=== PATIENT | male | born 1945 | race Caucasian/White ===

== ENCOUNTER 2018-05-05 11:43 | Observation (INO) ==
[2018-05-05] MEDS ORDERED: Isovue-370 500 ML INFUS..BTL IV ONE (11:52)
[2018-05-05] MEDS ORDERED: *HR* Dextrose 50 % in Water (Syg) 50 ML SYRINGE IVP ONE ×2 (12:01→13:55)
--- NOTE | 2018-05-05 12:01 | Emergency Department Note ---
Disposition Clinical Impression: Hypoglycemia Disposition: Admitted As Inpatient Condition: Fair [facility]: [facility] Care Provider[facility] - Forms: ED Satisfaction Letter Time of Disposition: 15:17 General Adult HPI - General Chief complaint: ED Weakness Stated complaint: HYPOGLYCEMIA, NUMBNESS Time Seen by Provider: 05/05/18 11:51 Source: patient, EMS Mode of arrival: EMS Limitations: no limitations Nursing Notes Reviewed: Yes Vital Signs Reviewed: Yes - History of Present Illness HPI Narrative: 73-year-old male with significant past medical history of TIA and diabetes currently on glipizide presenting to the emergency prior chief complaint of weakness, numbness and hypoglycemia. According to his have bedside patient was sleeping this morning when he started thrashing around in bed. When he woke up he was unable to speak. decided to call EMS at that time. When EMS arrived patient was starting to resolve his symptoms. Vitamin arrived to the emergency department all that was noticed with some mild left facial droop that resolved when he smiled. Just prior to arrival patient did have a point of care glucose that was 26. According to at bedside patient' s sugars have been low over the past few months in the 40s to 50s but no intervention has been done by his primary care physician. Pain Scale: 0 - Related Data Home Medications Medication Instructions Recorded Confirmed Aspirin [Lo-Dose Aspirin EC] 81 mg PO DAILY 05/05/18 05/05/18 Cholecalciferol (D-3) [Vitamin D] 1,000 unit PO DAILY 05/05/18 05/05/18 Donepezil [Aricept] 5 mg PO QAM 05/05/18 05/05/18 Glucosamine HCl/Chondr [place] A Na 1 tab PO DAILY 05/05/18 05/05/18 [[facility] Glucosamine-Chondr Tablet] Lovastatin [Lovastatin] 40 mg PO HS 05/05/18 05/05/18 Propranolol [Inderal] 10 mg PO BID 05/05/18 05/05/18 Thiamine HCl [Vitamin B-1] 100 mg PO DAILY 05/05/18 05/05/18 Tolterodine LA (24 HR) [Detrol LA] 4 mg PO DAILY 05/05/18 05/05/18 glipiZIDE [Glucotrol] 2.5 mg PO BID 05/05/18 05/05/18 Allergies Allergy/AdvReac Type Severity Reaction Status Date / Time bee venom protein (honey bee) Allergy Anaphylaxis Verified 05/05/18 13:43 gabapentin AdvReac Shakiness Verified 05/05/18 13:43 pregabalin AdvReac Shakiness Verified 05/05/18 13:43 All systems ED: reviewed and negative except as stated. Constitutional: Denies: fever, chills Eyes: Reports: as per HPI ENT ED: Reports: as per HPI Cardiovascular: Denies: chest pain, palpitations Respiratory: Denies: cough, dyspnea, wheezes Gastrointestinal: Denies: abdominal pain, nausea, vomiting Genitourinary: Reports: as per HPI Musculoskeletal: Reports: as per HPI Integumentary: Denies: rash, lesions Neurological: Reports: headache, weakness, numbness, paresthesias Psychiatric: Reports: as per HPI Endocrine: Reports: as per HPI Hematological/Lymphatic: Reports: as per HPI Allergic/Immunologic: Reports: as per HPI Past Medical History - Past Medical History Attestation: Yes The following information was validated with the patient. Medical history: Reports: arthritis, cancer, coronary artery disease, diabetes, hyperlipidemia, hypertension Surgical history: Reports: knee replacement Psychiatric history: Reports: no psych history - Social History Smoking Status: Former smoker Smokeless Tobacco Status: No Alcohol use: Reports: occasionally Drug use: Reports: none Physical Exam - General Limitations: no limitations General appearance: alert, in no apparent distress - Head Head exam: atraumatic, normocephalic, normal inspection - Eye Eye exam: Present: normal appearance, PERRL, EOMI. Absent: scleral icterus, conjunctival injection - ENT ENT exam: mucous membranes dry - Neck Neck exam: Present: normal inspection, full ROM. Absent: tenderness, meningismus - Chest Chest inspection: Present: normal inspection, symmetric chest wall rise. Absent : tenderness, rash - Respiratory Respiratory exam: Present: normal lung sounds bilaterally. Absent: respiratory distress, wheezes - Cardiovascular Cardiovascular exam: Present: regular rate, normal rhythm, normal heart sounds - Abdominal Exam Abdominal exam: Present: soft, Non-Tender. Absent: distention, guarding, rebound - Extremities Exam Extremities exam: Present: normal inspection, full ROM - Neurological Exam Neurological exam: Present: alert, oriented X3, CN II-XII intact, other (mild left facial droop noted on exam, patient able to smile equal bilaterally without difficulty). Absent: motor sensory deficit - Psychiatric Psychiatric exam: Present: normal affect, normal mood - Skin Skin exam: Present: warm, intact Course Course Narrative: 73-year-old male presenting with hypoglycemia and strokelike symptoms. Due to the hypoglycemia stroke alert but not because at this time. We will also perform a CT of the head along with a CTA of the head and neck. We will provide the patient with D50 and perform basic laboratory analysis including CBC, BMP, troponin. Patient is alert and oriented 3 in the room. Physical exam does not show any focal neurological deficit. Disposition will be admission the pending results. Patient agrees to this plan. - Reevaluation(s) Reevaluation #1: Patient's laboratory analysis shows apical ischemia but otherwise unchanged from baseline. CTA of the head and neck were within normal limits. Patient at baseline according to . Repeat glucose showed lowering again in the 30s. Another amp of D50 was given and D5 normal saline is given at 100 mL per hour for maintenance fluids. Patient also given a diet. At this time will plan to admit the patient for further workup for his hypoglycemia. Patient is alert and oriented 3 with stable vital signs. I spoke with hospitalist senior analytic consultant Dr. Rodas who agrees to accept the patient at this time. Vital Signs Temperature 98.6 F 05/05/18 11:46 Pulse Rate 66 05/05/18 11:46 Respiratory Rate 18 05/05/18 11:46 Blood Pressure 152/88 05/05/18 11:46 O2 Sat by Pulse Oximetry 97 05/05/18 11:46 Temperature 98.6 F 05/05/18 11:46 Pulse Rate 70 05/05/18 14:16 Respiratory Rate 18 05/05/18 14:16 Blood Pressure 171/82 05/05/18 14:16 O2 Sat by Pulse Oximetry 97 05/05/18 14:16 Oxygen Delivery Oxygen Delivery Room Air Medical Decision Making - Lab Data Result diagrams: 05/05/18 11:50 05/05/18 11:50 Lab Results 05/05/18 05/05/18 05/05/18 Range/Units 11:46 11:48 11:50 WBC 5.9 (4.3-11.1) K/mcL RBC 3.78 L (4.19-5.50) M/mcL Hgb 14.7 (12.9-16.9) g/dL Hct 41.5 (37.5-50.1) % MCV 109.8 H (83.0-100.0) fL MCH 38.9 H (28.0-33.3) pg MCHC 35.4 (31.6-35.5) g/dL RDW 13.9 (11.5-14.5) % Plt Count 92 L (140-400) K/mcL MPV 9.8 (9.4-12.4) fL Immature Gran % 0.2 (0-4) % Seg Neutrophils % 44.7 % Lymphocytes % 48.0 % Monocytes % 4.9 % Eosinophils % 2.2 % Basophils % 0.0 % Neutrophils # 2.6 (1.6-8.9) K/mcL Lymphocytes # 2.8 (0.6-4.6) K/mcL Monocytes # 0.3 (0.0-1.3) K/mcL Eosinophils # 0.1 (0.0-0.6) K/mcL Basophils # 0.0 (0.0-0.2) K/mcL Immature Plt Fraction 4.1 (1.1-6.1) % PT (9.4-12.1) Seconds INR APTT (26.0-36.0) Seconds Sodium (136-145) mEq/L Potassium (3.5-5.1) mEq/L Chloride (98-107) mEq/L Carbon Dioxide (23-29) mEq/L BUN (8-23) mg/dL Creatinine (0.70-1.30) mg/dL Est GFR ( Amer) (> 60) Est GFR (Non-Af Amer) (> 60) BUN/Creatinine Ratio (6-26) Glucose (70-105) mg/dL POC Glucose 26 L* 31 L* (70-99) mg/dL Calculated Osmolality (280-300) Lactic Acid (0.5-2.2) mmol/L Calcium (8.6-10.3) mg/dL Troponin I (< 0.04) ng/mL Urine Color (Yellow) Urine Clarity (Clear) Urine pH (5.0-8.0) pH Units Ur Specific [place] (1.010-1.025) Urine Protein (Neg-Trace) mg/dL Urine Glucose (UA) (Normal) mg/dL Urine Ketones (Negative) mg/dL Urine Blood (Negative) Urine Nitrite (Negative) Urine Bilirubin (Negative) Urine Urobilinogen (Normal) mg/dL Ur Leukocyte Esterase (Negative) Ur Culture Indicated? (NO) Specimen Rejected 05/05/18 05/05/18 05/05/18 Range/Units 11:50 11:50 11:58 WBC (4.3-11.1) K/mcL RBC (4.19-5.50) M/mcL Hgb (12.9-16.9) g/dL Hct (37.5-50.1) % MCV (83.0-100.0) fL MCH (28.0-33.3) pg MCHC (31.6-35.5) g/dL RDW (11.5-14.5) % Plt Count (140-400) K/mcL MPV (9.4-12.4) fL Immature Gran % (0-4) % Seg Neutrophils % % Lymphocytes % % Monocytes % % Eosinophils % % Basophils % % Neutrophils # (1.6-8.9) K/mcL Lymphocytes # (0.6-4.6) K/mcL Monocytes # (0.0-1.3) K/mcL Eosinophils # (0.0-0.6) K/mcL Basophils # (0.0-0.2) K/mcL Immature Plt Fraction (1.1-6.1) % PT (9.4-12.1) Seconds INR APTT (26.0-36.0) Seconds Sodium 136 (136-145) mEq/L Potassium 4.0 (3.5-5.1) mEq/L Chloride 98 (98-107) mEq/L Carbon Dioxide 29 (23-29) mEq/L BUN 6 L (8-23) mg/dL Creatinine 1.04 (0.70-1.30) mg/dL Est GFR ( Amer) > 60 (> 60) Est GFR (Non-Af Amer) > 60 (> 60) BUN/Creatinine Ratio 6 (6-26) Glucose 36 L* (70-105) mg/dL POC Glucose 79 (70-99) mg/dL Calculated Osmolality 276 L (280-300) Lactic Acid (0.5-2.2) mmol/L Calcium 8.9 (8.6-10.3) mg/dL Troponin I < 0.03 (< 0.04) ng/mL Urine Color (Yellow) Urine Clarity (Clear) Urine pH (5.0-8.0) pH Units Ur Specific [place] (1.010-1.025) Urine Protein (Neg-Trace) mg/dL Urine Glucose (UA) (Normal) mg/dL Urine Ketones (Negative) mg/dL Urine Blood (Negative) Urine Nitrite (Negative) Urine Bilirubin (Negative) Urine Urobilinogen (Normal) mg/dL Ur Leukocyte Esterase (Negative) Ur Culture Indicated? (NO) Specimen Rejected Volume 05/05/18 05/05/18 05/05/18 Range/Units 12:34 12:40 12:40 WBC (4.3-11.1) K/mcL RBC (4.19-5.50) M/mcL Hgb (12.9-16.9) g/dL Hct (37.5-50.1) % MCV (83.0-100.0) fL MCH (28.0-33.3) pg MCHC (31.6-35.5) g/dL RDW (11.5-14.5) % Plt Count (140-400) K/mcL MPV (9.4-12.4) fL Immature Gran % (0-4) % Seg Neutrophils % % Lymphocytes % % Monocytes % % Eosinophils % % Basophils % % Neutrophils # (1.6-8.9) K/mcL Lymphocytes # (0.6-4.6) K/mcL Monocytes # (0.0-1.3) K/mcL Eosinophils # (0.0-0.6) K/mcL Basophils # (0.0-0.2) K/mcL Immature Plt Fraction (1.1-6.1) % PT 14.5 H (9.4-12.1) Seconds INR 1.3 APTT 35.2 (26.0-36.0) Seconds Sodium (136-145) mEq/L Potassium (3.5-5.1) mEq/L Chloride (98-107) mEq/L Carbon Dioxide (23-29) mEq/L BUN (8-23) mg/dL Creatinine (0.70-1.30) mg/dL Est GFR ( Amer) (> 60) Est GFR (Non-Af Amer) (> 60) BUN/Creatinine Ratio (6-26) Glucose (70-105) mg/dL POC Glucose 63 L (70-99) mg/dL Calculated Osmolality (280-300) Lactic Acid 2.6 H (0.5-2.2) mmol/L Calcium (8.6-10.3) mg/dL Troponin I (< 0.04) ng/mL Urine Color (Yellow) Urine Clarity (Clear) Urine pH (5.0-8.0) pH Units Ur Specific [place] (1.010-1.025) Urine Protein (Neg-Trace) mg/dL Urine Glucose (UA) (Normal) mg/dL Urine Ketones (Negative) mg/dL Urine Blood (Negative) Urine Nitrite (Negative) Urine Bilirubin (Negative) Urine Urobilinogen (Normal) mg/dL Ur Leukocyte Esterase (Negative) Ur Culture Indicated? (NO) Specimen Rejected 05/05/18 Range/Units 13:50 WBC (4.3-11.1) K/mcL RBC (4.19-5.50) M/mcL Hgb (12.9-16.9) g/dL Hct (37.5-50.1) % MCV (83.0-100.0) fL MCH (28.0-33.3) pg MCHC (31.6-35.5) g/dL RDW (11.5-14.5) % Plt Count (140-400) K/mcL MPV (9.4-12.4) fL Immature Gran % (0-4) % Seg Neutrophils % % Lymphocytes % % Monocytes % % Eosinophils % % Basophils % % Neutrophils # (1.6-8.9) K/mcL Lymphocytes # (0.6-4.6) K/mcL Monocytes # (0.0-1.3) K/mcL Eosinophils # (0.0-0.6) K/mcL Basophils # (0.0-0.2) K/mcL Immature Plt Fraction (1.1-6.1) % PT (9.4-12.1) Seconds INR APTT (26.0-36.0) Seconds Sodium (136-145) mEq/L Potassium (3.5-5.1) mEq/L Chloride (98-107) mEq/L Carbon Dioxide (23-29) mEq/L BUN (8-23) mg/dL Creatinine (0.70-1.30) mg/dL Est GFR ( Amer) (> 60) Est GFR (Non-Af Amer) (> 60) BUN/Creatinine Ratio (6-26) Glucose (70-105) mg/dL POC Glucose (70-99) mg/dL Calculated Osmolality (280-300) Lactic Acid (0.5-2.2) mmol/L Calcium (8.6-10.3) mg/dL Troponin I (< 0.04) ng/mL Urine Color Yellow (Yellow) Urine Clarity Clear (Clear) Urine pH 6.5 (5.0-8.0) pH Units Ur Specific [place] 1.025 (1.010-1.025) Urine Protein Negative (Neg-Trace) mg/dL Urine Glucose (UA) 100 H (Normal) mg/dL Urine Ketones Negative (Negative) mg/dL Urine Blood Negative (Negative) Urine Nitrite Negative (Negative) Urine Bilirubin Negative (Negative) Urine Urobilinogen Normal (Normal) mg/dL Ur Leukocyte Esterase Negative (Negative) Ur Culture Indicated? NO (NO) Specimen Rejected - EKG Data EKG #1 EKG attestation: Yes I reviewed and interpreted this EKG. EKG results narrative: Sinus rhythm. Resting beats per minute. OK interval 205, QRS 97, QTC 463. No signs of acute ST segment elevation or ischemia. Compared to previous EKG completed on 06/23/2013 no significant changes noted Attestation Statement - Attestation Attestation: I, Ceasar Fowler DO, examined this patient [id number] and my medical decision-making was reviewed with Dr. Lindsey Santiago, Resident Physician. I agree with the documented findings, disposition and treatment plan as described except to the extent set forth below. Please see my progress notes for details.
[2018-05-05 12:07] LABS: Immature Granulocytes % 0.2 % (0-4); Mean Corpuscular HGB Conc 35.4 g/dL (31.6-35.5); Red Cell Distribution Width 13.9 % (11.5-14.5)
[2018-05-05 12:09] LABS: Eosinophils # 0.1 K/mcL (0.0-0.6); Eosinophils % 2.2 %; Hematocrit 41.5 % (37.5-50.1); Hemoglobin 14.7 g/dL (12.9-16.9); Immature Platelets 4.1 % (1.1-6.1); Lymphocytes # 2.8 K/mcL (0.6-4.6); Mean Corpuscular Hemoglobin 38.9 pg (28.0-33.3); Mean Corpuscular Volume 109.8 fL (83.0-100.0); Mean Platelet Volume 9.8 fL (9.4-12.4); Monocytes # 0.3 K/mcL (0.0-1.3); Monocytes % 4.9 %; Neutrophils # 2.6 K/mcL (1.6-8.9); Red Blood Count 3.78 M/mcL (4.19-5.50); Segmented Neutrophils % 44.7 %
[2018-05-05 12:22] LABS: Platelet Count 92 K/mcL (140-400)
[2018-05-05 12:30] LABS: BUN/Creatinine Ratio 6 (6-26); Blood Urea Nitrogen 6 mg/dL (8-23); Calcium 8.9 mg/dL (8.6-10.3); Carbon Dioxide 29 mEq/L (23-29); Chloride 98 mEq/L (98-107); Glucose 36 mg/dL (70-105); Osmolality,Calculated 276 (280-300); Sodium 136 mEq/L (136-145); Troponin I < 0.03 ng/mL (< 0.04); eGFR For Non-African Americans > 60 (> 60)
--- NOTE | 2018-05-05 13:12 | Emergency Department Note ---
Disposition Clinical Impression: Hypoglycemia, Confusion Disposition: Admitted As Inpatient Condition: Fair [facility] [[facility]nered [facility] - Forms: ED Satisfaction Letter Time of Disposition: 15:18 General Adult HPI - General Chief complaint: ED Neuro Symptoms/Deficit Stated complaint: HYPOGLYCEMIA, NUMBNESS Time Seen by Provider: 05/05/18 11:51 Source: patient, EMS Mode of arrival: EMS Limitations: no limitations - History of Present Illness Pain Scale: 0 - Related Data Home Medications Medication Instructions Recorded Confirmed Aspirin [Lo-Dose Aspirin EC] 81 mg PO DAILY 05/05/18 05/05/18 Cholecalciferol (D-3) [Vitamin D] 1,000 unit PO DAILY 05/05/18 05/05/18 Donepezil [Aricept] 5 mg PO QAM 05/05/18 05/05/18 Glucosamine HCl/Chondr [place] A Na 1 tab PO DAILY 05/05/18 05/05/18 [[facility] Glucosamine-Chondr Tablet] Lovastatin [Lovastatin] 40 mg PO HS 05/05/18 05/05/18 Propranolol [Inderal] 10 mg PO BID 05/05/18 05/05/18 Thiamine HCl [Vitamin B-1] 100 mg PO DAILY 05/05/18 05/05/18 Tolterodine LA (24 HR) [Detrol LA] 4 mg PO DAILY 05/05/18 05/05/18 glipiZIDE [Glucotrol] 2.5 mg PO BID 05/05/18 05/05/18 Allergies Allergy/AdvReac Type Severity Reaction Status Date / Time bee venom protein (honey bee) Allergy Anaphylaxis Verified 05/05/18 13:43 gabapentin AdvReac Shakiness Verified 05/05/18 13:43 pregabalin AdvReac Shakiness Verified 05/05/18 13:43 Constitutional: Denies: fever, chills Eyes: Reports: as per HPI ENT ED: Reports: as per HPI Cardiovascular: Denies: chest pain, palpitations Respiratory: Denies: cough, dyspnea, wheezes Gastrointestinal: Denies: abdominal pain, nausea, vomiting Genitourinary: Reports: as per HPI Musculoskeletal: Reports: as per HPI Integumentary: Denies: rash, lesions Neurological: Reports: headache, weakness, numbness, paresthesias Psychiatric: Reports: as per HPI Endocrine: Reports: as per HPI Hematological/Lymphatic: Reports: as per HPI Allergic/Immunologic: Reports: as per HPI Past Medical History - Past Medical History Medical history: Reports: arthritis, cancer, coronary artery disease, diabetes, hyperlipidemia, hypertension Surgical history: Reports: knee replacement Psychiatric history: Reports: no psych history - Social History Smoking Status: Former smoker Smokeless Tobacco Status: No Alcohol use: Reports: occasionally Drug use: Reports: none Physical Exam - General Limitations: no limitations General appearance: alert, in no apparent distress Course Vital Signs Temperature 98.6 F 05/05/18 11:46 Pulse Rate 66 05/05/18 11:46 Respiratory Rate 18 05/05/18 11:46 Blood Pressure 152/88 05/05/18 11:46 O2 Sat by Pulse Oximetry 97 05/05/18 11:46 Temperature 98.6 F 05/05/18 11:46 Pulse Rate 70 05/05/18 14:16 Respiratory Rate 18 05/05/18 14:16 Blood Pressure 171/82 05/05/18 14:16 O2 Sat by Pulse Oximetry 97 05/05/18 14:16 Oxygen Delivery Oxygen Delivery Room Air Medical Decision Making - Lab Data Result diagrams: 05/05/18 11:50 05/05/18 11:50 Lab Results 05/05/18 05/05/18 05/05/18 Range/Units 11:46 11:48 11:50 WBC 5.9 (4.3-11.1) K/mcL RBC 3.78 L (4.19-5.50) M/mcL Hgb 14.7 (12.9-16.9) g/dL Hct 41.5 (37.5-50.1) % MCV 109.8 H (83.0-100.0) fL MCH 38.9 H (28.0-33.3) pg MCHC 35.4 (31.6-35.5) g/dL RDW 13.9 (11.5-14.5) % Plt Count 92 L (140-400) K/mcL MPV 9.8 (9.4-12.4) fL Immature Gran % 0.2 (0-4) % Seg Neutrophils % 44.7 % Lymphocytes % 48.0 % Monocytes % 4.9 % Eosinophils % 2.2 % Basophils % 0.0 % Neutrophils # 2.6 (1.6-8.9) K/mcL Lymphocytes # 2.8 (0.6-4.6) K/mcL Monocytes # 0.3 (0.0-1.3) K/mcL Eosinophils # 0.1 (0.0-0.6) K/mcL Basophils # 0.0 (0.0-0.2) K/mcL Immature Plt Fraction 4.1 (1.1-6.1) % PT (9.4-12.1) Seconds INR APTT (26.0-36.0) Seconds Sodium (136-145) mEq/L Potassium (3.5-5.1) mEq/L Chloride (98-107) mEq/L Carbon Dioxide (23-29) mEq/L BUN (8-23) mg/dL Creatinine (0.70-1.30) mg/dL Est GFR ( Amer) (> 60) Est GFR (Non-Af Amer) (> 60) BUN/Creatinine Ratio (6-26) Glucose (70-105) mg/dL POC Glucose 26 L* 31 L* (70-99) mg/dL Calculated Osmolality (280-300) Lactic Acid (0.5-2.2) mmol/L Calcium (8.6-10.3) mg/dL Troponin I (< 0.04) ng/mL Urine Color (Yellow) Urine Clarity (Clear) Urine pH (5.0-8.0) pH Units Ur Specific [place] (1.010-1.025) Urine Protein (Neg-Trace) mg/dL Urine Glucose (UA) (Normal) mg/dL Urine Ketones (Negative) mg/dL Urine Blood (Negative) Urine Nitrite (Negative) Urine Bilirubin (Negative) Urine Urobilinogen (Normal) mg/dL Ur Leukocyte Esterase (Negative) Ur Culture Indicated? (NO) Specimen Rejected 05/05/18 05/05/18 05/05/18 Range/Units 11:50 11:50 11:58 WBC (4.3-11.1) K/mcL RBC (4.19-5.50) M/mcL Hgb (12.9-16.9) g/dL Hct (37.5-50.1) % MCV (83.0-100.0) fL MCH (28.0-33.3) pg MCHC (31.6-35.5) g/dL RDW (11.5-14.5) % Plt Count (140-400) K/mcL MPV (9.4-12.4) fL Immature Gran % (0-4) % Seg Neutrophils % % Lymphocytes % % Monocytes % % Eosinophils % % Basophils % % Neutrophils # (1.6-8.9) K/mcL Lymphocytes # (0.6-4.6) K/mcL Monocytes # (0.0-1.3) K/mcL Eosinophils # (0.0-0.6) K/mcL Basophils # (0.0-0.2) K/mcL Immature Plt Fraction (1.1-6.1) % PT (9.4-12.1) Seconds INR APTT (26.0-36.0) Seconds Sodium 136 (136-145) mEq/L Potassium 4.0 (3.5-5.1) mEq/L Chloride 98 (98-107) mEq/L Carbon Dioxide 29 (23-29) mEq/L BUN 6 L (8-23) mg/dL Creatinine 1.04 (0.70-1.30) mg/dL Est GFR ( Amer) > 60 (> 60) Est GFR (Non-Af Amer) > 60 (> 60) BUN/Creatinine Ratio 6 (6-26) Glucose 36 L* (70-105) mg/dL POC Glucose 79 (70-99) mg/dL Calculated Osmolality 276 L (280-300) Lactic Acid (0.5-2.2) mmol/L Calcium 8.9 (8.6-10.3) mg/dL Troponin I < 0.03 (< 0.04) ng/mL Urine Color (Yellow) Urine Clarity (Clear) Urine pH (5.0-8.0) pH Units Ur Specific [place] (1.010-1.025) Urine Protein (Neg-Trace) mg/dL Urine Glucose (UA) (Normal) mg/dL Urine Ketones (Negative) mg/dL Urine Blood (Negative) Urine Nitrite (Negative) Urine Bilirubin (Negative) Urine Urobilinogen (Normal) mg/dL Ur Leukocyte Esterase (Negative) Ur Culture Indicated? (NO) Specimen Rejected Volume 05/05/18 05/05/18 05/05/18 Range/Units 12:34 12:40 12:40 WBC (4.3-11.1) K/mcL RBC (4.19-5.50) M/mcL Hgb (12.9-16.9) g/dL Hct (37.5-50.1) % MCV (83.0-100.0) fL MCH (28.0-33.3) pg MCHC (31.6-35.5) g/dL RDW (11.5-14.5) % Plt Count (140-400) K/mcL MPV (9.4-12.4) fL Immature Gran % (0-4) % Seg Neutrophils % % Lymphocytes % % Monocytes % % Eosinophils % % Basophils % % Neutrophils # (1.6-8.9) K/mcL Lymphocytes # (0.6-4.6) K/mcL Monocytes # (0.0-1.3) K/mcL Eosinophils # (0.0-0.6) K/mcL Basophils # (0.0-0.2) K/mcL Immature Plt Fraction (1.1-6.1) % PT 14.5 H (9.4-12.1) Seconds INR 1.3 APTT 35.2 (26.0-36.0) Seconds Sodium (136-145) mEq/L Potassium (3.5-5.1) mEq/L Chloride (98-107) mEq/L Carbon Dioxide (23-29) mEq/L BUN (8-23) mg/dL Creatinine (0.70-1.30) mg/dL Est GFR ( Amer) (> 60) Est GFR (Non-Af Amer) (> 60) BUN/Creatinine Ratio (6-26) Glucose (70-105) mg/dL POC Glucose 63 L (70-99) mg/dL Calculated Osmolality (280-300) Lactic Acid 2.6 H (0.5-2.2) mmol/L Calcium (8.6-10.3) mg/dL Troponin I (< 0.04) ng/mL Urine Color (Yellow) Urine Clarity (Clear) Urine pH (5.0-8.0) pH Units Ur Specific [place] (1.010-1.025) Urine Protein (Neg-Trace) mg/dL Urine Glucose (UA) (Normal) mg/dL Urine Ketones (Negative) mg/dL Urine Blood (Negative) Urine Nitrite (Negative) Urine Bilirubin (Negative) Urine Urobilinogen (Normal) mg/dL Ur Leukocyte Esterase (Negative) Ur Culture Indicated? (NO) Specimen Rejected 05/05/18 Range/Units 13:50 WBC (4.3-11.1) K/mcL RBC (4.19-5.50) M/mcL Hgb (12.9-16.9) g/dL Hct (37.5-50.1) % MCV (83.0-100.0) fL MCH (28.0-33.3) pg MCHC (31.6-35.5) g/dL RDW (11.5-14.5) % Plt Count (140-400) K/mcL MPV (9.4-12.4) fL Immature Gran % (0-4) % Seg Neutrophils % % Lymphocytes % % Monocytes % % Eosinophils % % Basophils % % Neutrophils # (1.6-8.9) K/mcL Lymphocytes # (0.6-4.6) K/mcL Monocytes # (0.0-1.3) K/mcL Eosinophils # (0.0-0.6) K/mcL Basophils # (0.0-0.2) K/mcL Immature Plt Fraction (1.1-6.1) % PT (9.4-12.1) Seconds INR APTT (26.0-36.0) Seconds Sodium (136-145) mEq/L Potassium (3.5-5.1) mEq/L Chloride (98-107) mEq/L Carbon Dioxide (23-29) mEq/L BUN (8-23) mg/dL Creatinine (0.70-1.30) mg/dL Est GFR ( Amer) (> 60) Est GFR (Non-Af Amer) (> 60) BUN/Creatinine Ratio (6-26) Glucose (70-105) mg/dL POC Glucose (70-99) mg/dL Calculated Osmolality (280-300) Lactic Acid (0.5-2.2) mmol/L Calcium (8.6-10.3) mg/dL Troponin I (< 0.04) ng/mL Urine Color Yellow (Yellow) Urine Clarity Clear (Clear) Urine pH 6.5 (5.0-8.0) pH Units Ur Specific [place] 1.025 (1.010-1.025) Urine Protein Negative (Neg-Trace) mg/dL Urine Glucose (UA) 100 H (Normal) mg/dL Urine Ketones Negative (Negative) mg/dL Urine Blood Negative (Negative) Urine Nitrite Negative (Negative) Urine Bilirubin Negative (Negative) Urine Urobilinogen Normal (Normal) mg/dL Ur Leukocyte Esterase Negative (Negative) Ur Culture Indicated? NO (NO) Specimen Rejected Attestation Statement - Attestation Attestation: I, Ceasar Fowler DO, examined this patient [id number] and my medical decision-making was reviewed with Dr. Lindsey Santiago, Resident Physician. I agree with the documented findings, disposition and treatment plan as described except to the extent set forth below. Please see my progress notes for details. 73-year-old male presents emergency room by EMS for altered mentation as well as difficulty with speech. He contacted EMS for transport because she is unable to bring him here. He does have a history of stroke and dementia. Patient presented by EMS more conversational then he was on initial evaluation. Patient was seen by EMS at the house and he had difficulty with speech and difficulty with following commands. An Accu-Chek was not collected at that time during the transportation here to the hospital on arrival. It collected Accu-Chek and his glucose was 27. Repeat Accu-Chek was 31. Patient was given an amp of dextrose. The patient does not meet any stroke criteria this time. He is alert he is oriented and answers questions. Patient does not appear to be in any distress. He has no signs of asymmetry he has cranial nerves II through XII are grossly intact he has full range of motion of the upper and lower extremities no specific deficits. He does have baseline dementia per the . He follows commands appropriately at this time. His NIH stroke scale is negative at this point. Patient will still have CT I noncontrast evaluation with CT angiography of the head and neck completed looking for infectious etiology and other sources to the hypoglycemia. Patient's medication list will be collected look for any long-acting medications. Disposition pending the full workup and treatment course. Physical exam is otherwise unremarkable at this time. Lungs are clear heart is regular abdomen is soft nontender nondistended with no guarding no rigidity no peritoneal symptoms at this time. See detailed documentation the physical exam, medical intervention, medical decision-making and disposition in the resident physician's note. 1235 Patient's repeat Accu-Chek here was 67. Wheelchair was ordered. Patient is mentating appropriately. The is at the bedside and said that he is acting completely normal at this time. CT imaging of the head will be completed along the neck at this point and admission process will be completed considering the patient is on a long acting oral medication glipizide. Disposition pending full workup and treatment course 1500 Patient's labs otherwise unremarkable. Electrolytes are stable. His lactic acid is 2.6 but mostly secondary to the metabolism completed without dextrose in his body. Patient has been provided with 2 Amps of dextrose here in the emergency room his repeat Accu-Chek was 92 this time. Wheelchair he has been provided and CT imaging of the head and neck is unremarkable. Hospitalist was contacted for admission they are happy to the patient with her service for continuation of management and observation. Patient otherwise clinically stable in no distress with no acute neurologic symptoms. All the symptoms appear to be secondary to the hypoglycemia and not a stroke. Patient is stable and in good medical condition the time of admission.
[2018-05-05 13:19] LABS: INR 1.3; Prothrombin Time 14.5 Seconds (9.4-12.1)
[2018-05-05 13:21] LABS: Activated Partial Thrombo Time 35.2 Seconds (26.0-36.0)
[2018-05-05 13:54] LABS: Bilirubin,Urine Negative (Negative); Blood,Urine Negative (Negative); Clarity,Urine Clear (Clear); Color,Urine Yellow (Yellow); Glucose,Urine (UA) 100 mg/dL (Normal); Ketones,Urine Negative (Negative); Leukocyte Esterase,Urine Negative (Negative); Nitrite,Urine Negative (Negative); PH,Urine 6.5 pH Units (5.0-8.0); Protein,Urine Negative (Neg-Trace); Specific Gravity,Urine 1.025 (1.010-1.025); Urobilinogen,Urine Normal (Normal)
[2018-05-05] MEDS: D5% in 0.9% NACL 1,000 ML IVC SCH (14:30)
[2018-05-05] MEDS ORDERED: Naloxone 0.4 MG/ML INJ IVP PRN (16:08)
[2018-05-05] MEDS ORDERED: Acetaminophen 325 MG TABLET PO PRN (16:08)
[2018-05-05] MEDS ORDERED: Dextrose Gel 15 GM/37.5 ML TUBE PO PRN ×2 (16:26)
[2018-05-05] MEDS ORDERED: D5% in Water 1,000 ML IVC PRN (16:26)
[2018-05-05] MEDS ORDERED: *HR* Dextrose 50 % in Water (Syg) 50 ML SYRINGE IVP PRN (16:26)
--- NOTE | 2018-05-05 16:33 | Internal Med History&Physical ---
<Spencer Espinoza - Last Filed: 05/05/18 17:04> Date of Encounter: 05/05/18 Time of Encounter: 15:30 Internal Medicine - H&P: HPI Chief complaint: Hypoglycemia/Neuro sx Admitted From: Emergency Dept Plans for Post Hospital Care: Home History of present illness: Mr. Cuelalr is a 73 year old male w/PMH of arthritis, prostate cancer with radiation treatments in 2010, CAD, diabetes controlled with oral antihyperglycemic medications, HLD, and HTN presents from the ED w/CC of low blood sugar this morning (26) and reports neuro sx (left facial droop and speech deficit that was transient). Pt. reports problem w/hypoglycemia. reports pt. has not been eating well for > 2 months. Pt. reports d/t early satiety. Reports bilateral LE weakness and chronic back pain. States he can only take a few steps w/his walker. Pt. denies recent illness, fever, chills, nausea, vomiting, headache, changes in vision, unusual bleeding, cough, chest congestion, chest pain, shortness of breath, abdominal pain, diarrhea, constipation, numbness, tingling, dizziness, lightheadedness, pre-syncope, or syncope. Past Med Surg Social Fam HX - Past Medical History Source: patient, old records reviewed, obtained from family Medical history: arthritis, cancer (Prostate), coronary artery disease, diabetes , hyperlipidemia, hypertension Additional medical history: prostate cancer Psychiatric history: no psych history - Past Surgical History Surgical History: knee replacement (Right knee) Additional surgical history: Bilat hernia repair. CABG 1994. 1 Cardiac stent 2012 - Social History Smoking Status: Former smoker Packs per day: Pack of cigarillos daily - Reports quitting in 2013 Smokeless Tobacco Status: No Alcohol use: occasionally Drug use: none Current living situation: Home, With Family Activity Level: Uses cane/walker Recent Out of Country Travel Within the Last 8 Weeks: No Exposure or Possible Exposure to Illness During Travel: No - Family History Father Race: Family Member Ethnicity: Non- Living Status: Age at : 76 Cause of : CO Hx Family Cardiac Disorders: Yes (MIs x 13) Hx Family Endocrine Disorder: Yes (DM) Mother Race: Family Member Ethnicity: Non- Living Status: Age at : 90 Cause of : Pancreatic cancer Hx Family Cancer: Yes (Pancreatic) Hx Family Endocrine Disorder: Yes (Thyroid disease) Sister Race: Family Member Ethnicity: Non- Living Status: Still Living Hx Family Medical Disorders: No Internal Medicine - H&P: Meds Aspirin [Lo-Dose Aspirin EC] 81 mg PO DAILY 05/05/18 [History] Cholecalciferol (D-3) [Vitamin D] 1,000 unit PO DAILY 05/05/18 [History] Donepezil [Aricept] 5 mg PO QAM 05/05/18 [History] Glucosamine HCl/Chondr [place] A Na [[facility]vs Glucosamine-Chondr Tablet] 1 tab PO DAILY [History] Lovastatin [Lovastatin] 40 mg PO HS 05/05/18 [History] Propranolol [Inderal] 10 mg PO BID 05/05/18 [History] Thiamine HCl [Vitamin B-1] 100 mg PO DAILY 05/05/18 [History] Tolterodine LA (24 HR) [Detrol LA] 4 mg PO DAILY 05/05/18 [History] glipiZIDE [Glucotrol] 2.5 mg PO BID 05/05/18 [History] 3 Allergy/AdvReac Type Severity Reaction Status Date / Time bee venom protein (honey bee) Allergy Anaphylaxis Verified 05/05/18 13:43 gabapentin AdvReac Shakiness Verified 05/05/18 13:43 pregabalin AdvReac Shakiness Verified 05/05/18 13:43 All Systems PM: A 10-system review of systems was performed and is negative for pertinent findings except as documented above in the HPI. - Constitutional Constitutional: as per HPI, anorexia (> 2 months), weakness (Bilateral LEs), no chills, no fever(s), no night sweats - EENT Eyes: no change in vision, no discharge, no pain, no photophobia Ears: no ear discharge, no ear pain, no tinnitus Nose, mouth and throat: no dysphagia, no nasal discharge, no neck pain, no sore throat - Breasts Breasts: as per HPI - Cardiovascular Cardiovascular ROS IM: no chest pain, no diaphoresis, no dyspnea, no lightheadedness, no palpitations, no syncope - Respiratory Respiratory: no cough, no dyspnea, no wheezing, no excessive phlegm production - Gastrointestinal Gastrointestinal: no abdominal pain, no diarrhea, no hematemesis, no hematochezia, no melena, no nausea, no vomiting - Genitourinary Genitourinary ROS male: as per HPI, urinary frequency (D/t prostate cancer) - Musculoskeletal Musculoskeletal ROS IM: as per HPI, back pain, muscle weakness (Bilateral LEs), no numbness, no tingling - Integumentary Integumentary IM: as per HPI, no rash, no unusual bruising - Neurological Neurological ROS: as per HPI, no confusion, no convulsions, no focal weakness, no numbness, no tingling, no tremor(s) - Psychiatric Psychiatric: as per HPI, change in appetite - Endocrine Endocrine IM: as per HPI - Hematologic/Lymphatic Hematologic/Lymphatic: no easy bruising - Allergic/Immunologic Allergic/Immunologic: as per HPI - Constitutional Vitals: Temp Pulse Resp BP Pulse Ox 98.6 F 70 16 131/69 97 05/05/18 11:46 05/05/18 14:16 05/05/18 15:44 05/05/18 15:44 05/05/18 14:16 General appearance: Present: cooperative, A&O X 3, pleasant, no acute distress, obese, answers questions appropriately - Head Head exam: Present: atraumatic, normocephalic - Eye Eye exam: Present: PERRL, conjuntiva pink, sclera anicteric Pupils: Present: PERRL - ENT ENT exam: Present: normal exam - Neck Neck exam general surgery: Present: normal inspection, supple, trachea midline. Absent: lymphadenopathy - Respiratory Respiratory exam: Present: CTAB. Absent: accessory muscle use, rales, rhonchi, wheezes - Cardiovascular Cardiovascular exam: Present: RRR, +S1, +S2. Absent: diastolic murmur, gallop, rubs, systolic murmur - GI/Abdominal GI/Abdominal exam: Present: normal bowel sounds, soft, no peritoneal signs. Absent: distended, tenderness - Rectal Rectal exam: Present: deferred - Additional comments: exam deferred. - Extremities Exam Extremities exam: Present: pedal edema (1+ pitting edema bilaterally. Pt. reports he does not take diuretic and has no CHF dx/hx.), warm, radial pulses palpable and symmetrical. Absent: calf tenderness, cyanotic - Back Exam Back exam: Present: normal inspection - Neurological Exam Neurological exam: Present: CN II-XII intact, oriented X3, no focal deficits. Absent: pronater drift, facial droop, speech deficit - Psychiatric Psychiatric exam: Present: normal affect, normal mood - Skin Skin exam: Present: dry, intact Internal Med - H&P Results - Labs CBC & Chem 7: 05/05/18 11:50 05/05/18 11:50 - Diagnostic Studies Chest x-ray Additional comments: Impressions Chest X-Ray 05/05/18 11:53 IMPRESSION: Stable chest. No acute cardiopulmonary abnormality. D/ / Gallito Lucas MD / Gallito Lucas MD Interpreting Provider: Gallito Lucas MD Other Images Additional comments: Impressions Angiography CT 05/05/18 11:52 IMPRESSION: No acute intracranial abnormality. Stable curvilinear hyperdensity involving posterior left frontal lobe cortex, likely calcification. This structure is unchanged dating back to 2010. No intracranial arterial large vessel occlusion. No arterial flow-limiting stenosis in the neck demonstrated. D/ / Christian Brantley MD / Christian Brantley MD Interpreting Provider: Christian Brantley MD Neck CTA 05/05/18 11:52 IMPRESSION: No acute intracranial abnormality. Stable curvilinear hyperdensity involving posterior left frontal lobe cortex, likely calcification. This structure is unchanged dating back to 2010. No intracranial arterial large vessel occlusion. No arterial flow-limiting stenosis in the neck demonstrated. D/ / Christian Brantley MD / Christian Brantley MD Interpreting Provider: Christian Brantley MD - Assessment and plan (1) Hypoglycemia Current Visit: Yes Status: Acute Assessment and plan: Pt. reports low blood sugar this morning (26) and reports neuro sx (left facial droop and speech deficit that was transient). Pt. reports problem w/ hypoglycemia. reports pt. has not been eating well for > 2 months. Pt. reports d/t early satiety.DM controlled w/Glipizide. Pt. and state that hypoglycemia has been an ongoing problem. SW consult to discuss home BG check supplies. Hold Glipizide. Hypoglycemic protocol ordered. BG checks Q2HR x4, then Q4HR. A1c in a.m. labs. ADA diet. Pt. would benefit from Endocrinology consult as OP on discharge. Pt. discussed w/Dr. Rodas who agrees w/plan of care. Pt. is moderate risk for further morbidity and complications d/t current hypoglycemia requiring close monitoring, hx of hypoglycemia that is not well- controlled, decrease in appetite and oral intake >2 months, hx, and risk factors. Observation. (2) Transient neurological symptoms Current Visit: Yes Status: Acute Assessment and plan: Acute and transient neurological sx w/hypoglycemia this a.m. Pts. reports left facial droop and speech deficit which have since resolved. No neuro deficits , facial droop, pronator drift on exam. NIHSS modified scale ordered. Dysphagia screen and pt. to be NPO until screening is passed. CTA of the head shows no acute intracranial abnormality. Stable curvilinear hyperdensity involving posterior left frontal lobe cortex, likely calcification. Structures unchanged dating back to 2010. No intracranial arterial large vessel occlusion. No arterial flow limiting stenosis of the neck demonstrated. MRI of the head/brain ordered to r/o infarct/ischemia. Will DC NIHSS if MRI WNL. (3) CAD (coronary artery disease) Current Visit: Yes Status: Chronic Assessment and plan: Hx of chronic CAD. Pt. reports double bypass in 1994 w/only one bypass working currently. Stent placement x1 in 2012. Continuous cardiac telemetry. Continue pts. Propanolol and lovastatin. Qualifiers: Coronary Disease-Associated Artery/Lesion type: unspecified vessel or lesion type [place] vs. transplanted heart: [place] heart Associated angina: angina presence unspecified Qualified Code(s): I25.10 - Atherosclerotic heart disease of [place] coronary artery without angina pectoris (4) Diabetes Current Visit: Yes Status: Chronic Assessment and plan: Hx of chronic DM controlled w/Glipizide. Pt. and state that hypoglycemia has been an ongoing problem. SW consult to discuss home BG check supplies. Hold Glipizide. Hypoglycemic protocol ordered. BG checks Q2HR x4, then Q4HR. A1c in a.m. labs. ADA diet. Pt. would benefit from Endocrinology consult as OP on discharge. Qualifiers: Diabetes mellitus type: type 2 Diabetes mellitus mcfp insulin use: without superintendent marine oil terminal use Diabetes mellitus complication status: with unspecified complications Qualified Code(s): E11.8 - Type 2 diabetes mellitus with unspecified complications (5) HLD (hyperlipidemia) Current Visit: Yes Status: Chronic Assessment and plan: Hx of chronic HLD. Lipid panel in a.m. labs. Continue pts. Lovastatin. Qualifiers: Hyperlipidemia type: pure hypercholesterolemia Qualified Code(s): E78.00 - Pure hypercholesterolemia, unspecified; E78.0 - Pure hypercholesterolemia (6) HTN (hypertension) Current Visit: Yes Status: Chronic Assessment and plan: Hx of chronic HTN. Monitor pt. and VS. Continue patient's propranolol. Qualifiers: Hypertension type: essential hypertension Qualified Code(s): I10 - Essential (primary) hypertension (7) History of prostate cancer Current Visit: Yes Status: Chronic Assessment and plan: Hx of chronic prostate cancer that pt. reports receiving radiation txs for in 2010. Pt. and state that sx have returned and they believe cancer has returned. Pt. to f/u w/Oncologist OP. Continue pts. Detrol LA. (8) DVT prophylaxis Current Visit: Yes Status: Acute Assessment and plan: Bilateral DEBORAH hose for DVT prophylaxis d/t current pedal edema. (9) Weakness of both legs Current Visit: Yes Status: Acute Assessment and plan: Acute on chronic weakness of bilateral LEs. Pt. and state that pts. chronic back pain factors into this weakness. Falls/safety precautions. Up with assist only. PT/OT consults. - Time Spent With Patient Total time spent is greater than 50% in coordination of care (as documented) at patient's floor/unit and/or counseling patient: Greater than 35 minutes <Santos Rodas - Last Filed: 05/05/18 18:58> Date of Encounter: 05/05/18 Internal Medicine - H&P: HPI History of present illness: Mr. Cuellar is a 73 year old male All Systems PM: A 10-system review of systems was performed and is negative for pertinent findings except as documented above in the HPI. - Constitutional Vitals: Temp Pulse Resp BP Pulse Ox 98.3 F 62 16 143/74 96 05/05/18 18:46 05/05/18 18:46 05/05/18 18:46 05/05/18 18:46 05/05/18 18:46 Internal Med - H&P Results - Labs CBC & Chem 7: 05/05/18 11:50 05/05/18 11:50 - Attending Attestation I have seen and examined this patient independently. I have discussed with ELECTRICAL ENGINEERING DRAFTING OFFICER Mr Espinoza regarding the management plan. Agree with the documentation. - Assessment and plan (1) Hypoglycemia Current Visit: Yes Status: Acute (2) Transient neurological symptoms Current Visit: Yes Status: Acute (3) CAD (coronary artery disease) Current Visit: Yes Status: Chronic Qualifiers: Coronary Disease-Associated Artery/Lesion type: unspecified vessel or lesion type [place] vs. transplanted heart: [place] heart Associated angina: angina presence unspecified Qualified Code(s): I25.10 - Atherosclerotic heart disease of [place] coronary artery without angina pectoris (4) Diabetes Current Visit: Yes Status: Chronic Qualifiers: Diabetes mellitus type: type 2 Diabetes mellitus mcfp insulin use: without superintendent marine oil terminal use Diabetes mellitus complication status: with unspecified complications Qualified Code(s): E11.8 - Type 2 diabetes mellitus with unspecified complications (5) HLD (hyperlipidemia) Current Visit: Yes Status: Chronic Qualifiers: Hyperlipidemia type: pure hypercholesterolemia Qualified Code(s): E78.00 - Pure hypercholesterolemia, unspecified; E78.0 - Pure hypercholesterolemia (6) HTN (hypertension) Current Visit: Yes Status: Chronic Qualifiers: Hypertension type: essential hypertension Qualified Code(s): I10 - Essential (primary) hypertension (7) DVT prophylaxis Current Visit: Yes Status: Acute (8) History of prostate cancer Current Visit: Yes Status: Chronic (9) Weakness of both legs Current Visit: Yes Status: Acute - Time Spent With Patient Total time spent is greater than 50% in coordination of care (as documented) at patient's floor/unit and/or counseling patient:
[2018-05-06 05:18] LABS: Hematocrit 33.8 % (37.5-50.1); Immature Granulocytes % 0.2 % (0-4); Mean Corpuscular HGB Conc 34.6 g/dL (31.6-35.5); Mean Corpuscular Hemoglobin 37.4 pg (28.0-33.3); Mean Platelet Volume 10.4 fL (9.4-12.4); Red Blood Count 3.13 M/mcL (4.19-5.50)
[2018-05-06 05:20] LABS: Basophils % 0.2 %; Eosinophils # 0.1 K/mcL (0.0-0.6); Eosinophils % 2.6 %; Hemoglobin 11.7 g/dL (12.9-16.9); Immature Platelets 3.5 % (1.1-6.1); Lymphocytes # 2.3 K/mcL (0.6-4.6); Lymphocytes % 46.4 %; Monocytes # 0.4 K/mcL (0.0-1.3); Monocytes % 8.3 %; Neutrophils # 2.1 K/mcL (1.6-8.9); Segmented Neutrophils % 42.3 %
[2018-05-06 05:37] LABS: Platelet Count 83 K/mcL (140-400)
[2018-05-06 05:47] LABS: Alanine Aminotransferase 48 Units/L (7-52); Albumin 2.5 g/dL (3.5-5.7); Alkaline Phosphatase 151 Units/L (34-104); Aspartate Amino Transferase 180 Units/L (13-39); BUN/Creatinine Ratio 7 (6-26); Blood Urea Nitrogen 6 mg/dL (8-23); Carbon Dioxide 27 mEq/L (23-29); Chloride 98 mEq/L (98-107); Chol/HDL Ratio 3.5 (0-4.9); Cholesterol 87 mg/dL (< 200); Globulin 2.5 g/dL (2.4-3.5); Glucose 172 mg/dL (70-105); HDL Cholesterol 25 mg/dL (40-59); LDL Cholesterol,Calculated 49 mg/dL (0-99); Magnesium 1.3 mg/dL (1.6-2.6); Osmolality,Calculated 274 (280-300); Potassium 4.4 mEq/L (3.5-5.1); Sodium 131 mEq/L (136-145); Triglycerides 66 mg/dL (< 150); eGFR For Non-African Americans > 60 (> 60)
[2018-05-06] MEDS: D5% in 0.9% NACL 1,000 ML IVC SCH ×2 (06:29→12:32)
[2018-05-06] MEDS: Thiamine (B-1) 100 MG TABLET PO SCH (08:19)
[2018-05-06] MEDS: Tolterodine LA (24 HR) 4 MG CAP.ER.24H PO SCH (08:19)
[2018-05-06] MEDS: Cholecalciferol (D-3) 1,000 UNIT TABLET PO SCH (08:19)
[2018-05-06] MEDS: Aspirin Enteric Coated 81 MG Tablet PO SCH (08:20)
[2018-05-06 08:37] LABS: Estimated Average Glucose 94 mg/dl; Hemoglobin A1C 4.9 %
--- NOTE | 2018-05-06 09:32 | Electrocardiograph Report ---
[facility] Test Date: 2018-05-05 Pat Name: Dejon Cuellar Department: Room: 3B13 Gender: M Talent Development Manager: : 1945 Requested By: Ceasar Fowler Order Number: [id number] Reading MD: Poli Damian Measurements Intervals [place] Rate: 59 P: 23 AL: 205 QRS: 29 QRSD: 97 T: 32 QT: 467 QTc: 463 Interpretive Statements Sinus rhythm Borderline prolonged AL interval Low voltage, precordial leads Minimal ST depression, anterior leads Electronically Signed On 05-06-2018 9:31:21 EDT by Poli Damian
--- NOTE | 2018-05-06 09:34 | Electrocardiograph Report ---
[facility] Test Date: 2018-05-05 Pat Name: Dejon Cuellar Department: Room: 3B13 Gender: M Extractor Filler: : 1945 Requested By: Ceasar Fowler Order Number: [id number] Reading MD: Poli Damian Measurements Intervals [place] Rate: 59 P: -30 OR: 202 QRS: 21 QRSD: 95 T: 35 QT: 556 QTc: 551 Interpretive Statements Sinus rhythm Borderline prolonged OR interval Low voltage, precordial leads Borderline repolarization abnormality Prolonged QT interval Baseline wander in lead(s) I III aVL Electronically Signed On 05-06-2018 9:32:44 EDT by Poli Damian
[2018-05-06] MEDS: (Glucosamine Hcl/Chondr Su A Na [Cvs Glucosamine-Chon) PO SCH (10:42)
--- NOTE | 2018-05-06 11:57 | Internal Med Progress Note ---
Hospitalist Progress Note - Encounter Date of Encounter: 05/06/18 Time of Encounter: 08:50 - Subjective Interval History: Patient was seen and assessed the bedside 8:50 AM. He is alert, awake, oriented , answers questions appropriately. He states that he has had poor by mouth intake for the last 2-3 months without weight loss. He states that he has actually had a 30 pound weight gain. He reports early satiety after 5 or 6 bites. He denies any abdominal pain, nausea, vomiting, or diarrhea. He reports that he has bilateral lower extremity edema denies any cough or shortness of breath, denies shortness of breath with exertion. He denies any chest pain, dizziness, or vision changes. - Exam Vitals: Temp Pulse Resp BP Pulse Ox 98.6 F 60 15 148/75 93 05/06/18 06:49 05/06/18 06:49 05/06/18 06:49 05/06/18 06:49 05/06/18 06:49 Exam: General: Pt resting quietly on bed, no distress. Skin: pwd, no rashes, lesions, redness Neurological: Pt is alert and awake, oriented x 3, Speech is clear, PERRLA, EOMI , no nystagmus, no pronator drift. strength equal x 4 extremities HEENT: mucous mumbranes moist, no conjuctival pallor Neck: supple, no tracheal deviation, no lymphadenopathy, tenderness, no thyromegaly Heart: S1S2 heard without gallops, clicks, murmurs, no bradycardia or tachycardia, pt has +3-4 pitting bilateral peripheral edema, pedal and radial pulses palpable bilaterally. Lungs: clear throughout without wheezing, rales, or ronchi, respirations are unlabored Abdomen: soft and non tender with bowel sound present, no hepatomegaly. Psych: Normal affect with good eye contact - Assessment and Plan (1) Hypoglycemia Current Visit: Yes Status: Acute Assessment and Plan: Pt. reports low blood sugar this morning (26) and reports neuro sx (left facial droop and speech deficit that was transient). Pt. reports problem w/ hypoglycemia. reports pt. has not been eating well for > 2 months. Pt. reports d/t early satiety.DM controlled w/Glipizide. Pt. and state that hypoglycemia has been an ongoing problem. SW consult to discuss home BG check supplies. Hold Glipizide. Hypoglycemic protocol ordered. BG checks Q2HR x4, then Q4HR. A1c in a.m. labs. ADA diet. Pt. would benefit from Endocrinology consult as OP on discharge. Pt. discussed w/Dr. Rodas who agrees w/plan of care. Pt. is moderate risk for further morbidity and complications d/t current hypoglycemia requiring close monitoring, hx of hypoglycemia that is not well- controlled, decrease in appetite and oral intake >2 months, hx, and risk factors. Observation. (2) Transient neurological symptoms Current Visit: Yes Status: Acute Assessment and Plan: Likely secondary to hypoglycemia. Pt states that he was unable to talk, but started to feel better when he was given orange juice. Pt has no deficits now and is back to baseline. CTA of the head shows no acute intracranial abnormality. Stable curvilinear hyperdensity involving posterior left frontal lobe cortex, likely calcification. Structures unchanged dating back to 2010. No intracranial arterial large vessel occlusion. No arterial flow limiting stenosis of the neck demonstrated. brain MRI is negative for acute infarct, there chronic involutional changes. Continue to monitor. NIHSS scale completed and discontinued. (3) CAD (coronary artery disease) Current Visit: Yes Status: Chronic Assessment and Plan: Chronic. Patient denies chest pain CABG in 1994, stent placement 1 in 2012. Telemetry Continue aspirin, statin, beta boy. (4) Diabetes Current Visit: Yes Status: Chronic Assessment and Plan: A1c is 4.9%. We will discontinue by mouth medication. Patient has been hyperglycemic after receiving D5W. He will be monitored with Accu-Cheks and sliding scale insulin until control is regained. (5) HLD (hyperlipidemia) Current Visit: Yes Status: Chronic Assessment and Plan: Chronic. Continue statin. (6) HTN (hypertension) Current Visit: Yes Status: Chronic Assessment and Plan: Chronic. Well controlled. Continue current medications. (7) DVT prophylaxis Current Visit: Yes Status: Acute Assessment and Plan: Bilateral DEBORAH hose for DVT prophylaxis d/t current pedal edema. (8) History of prostate cancer Current Visit: Yes Status: Chronic Assessment and Plan: Hx of chronic prostate cancer that pt. reports receiving radiation txs in 2010. Pt. and state that sx have returned and they believe cancer has returned. Pt. to f/u w/Oncologist OP. Continue pts. Detrol LA. (9) Weakness of both legs Current Visit: Yes Status: Acute Assessment and Plan: Acute on chronic, also probably exacerbated by 30lb weight gain and pitting lower extremity edema. PT/OT evaluation Monitor for safety and falls. (10) Edema Current Visit: Yes Status: Acute Assessment and Plan: Pt presents with 30lb weight gain in the last 2-3 months despite anorexia and decreased po intake. He has +3-4 pitting edema bilaterally. Lungs are clear ant and post, CXR negative for acute process Pt denies prior history of CHF. Echo ordered, pt is s/p CABG, BNP mildly elevated Lasix 40mg IVP dailiy Strict I and O Daily weight 1.5 liter fluid restriction Continue telemetry - Time Spent with Patient Total time spent is greater than 50% in coordination of care (as documented) at patient's floor/unit and/or counseling patient: less than 15 minutes Plan of Care Discussed with: patient Internal Medicine: Result - Labs CBC & Chem 7: 05/06/18 03:25 05/06/18 03:25 Labs: Short CBC 05/06/18 Range/Units 03:25 WBC 5.0 (4.3-11.1) K/mcL Hgb 11.7 L D (12.9-16.9) g/dL Hct 33.8 L (37.5-50.1) % Plt Count 83 L (140-400) K/mcL Neutrophils # 2.1 (1.6-8.9) K/mcL BMP 05/06/18 03:25 Sodium 131 L Potassium 4.4 Chloride 98 Carbon Dioxide 27 BUN 6 L Creatinine 0.92 Glucose 172 H Calcium 8.0 L Liver Function 05/06/18 Range/Units 03:25 Total Bilirubin 2.0 H (0.3-1.0) mg/dL AST 180 H (13-39) Units/L ALT 48 (7-52) Units/L Alkaline Phosphatase 151 H (34-104) Units/L Albumin 2.5 L (3.5-5.7) g/dL - ABG Interpretation ABG results: PT/INR, D-dimer PT 14.5 Seconds (9.4-12.1) H 05/05/18 12:40 - Impressions Impressions Brain MRI 05/05/18 16:25 IMPRESSION: Chronic involutional changes. No acute infarct. D/ / Sami Montoya MD / Sami Montoya MD Interpreting Provider: Sami Montoya MD - VTE Documentation of Mechanical Device: Graduated compression elastic hosiery Consult Discharge Plan - Plan [facility]errals: [facility] [Primary Care Provider[facility] - (3) CAD (coronary artery disease) Qualifiers: Coronary Disease-Associated Artery/Lesion type: unspecified vessel or lesion type [place] vs. transplanted heart: [place] heart Associated angina: angina presence unspecified Qualified Code(s): I25.10 - Atherosclerotic heart disease of [place] coronary artery without angina pectoris (4) Diabetes Qualifiers: Diabetes mellitus type: type 2 Diabetes mellitus jail insulin use: without termite technician use Diabetes mellitus complication status: with unspecified complications Qualified Code(s): E11.8 - Type 2 diabetes mellitus with unspecified complications (5) HLD (hyperlipidemia) Qualifiers: Hyperlipidemia type: pure hypercholesterolemia Qualified Code(s): E78.00 - Pure hypercholesterolemia, unspecified; E78.0 - Pure hypercholesterolemia (6) HTN (hypertension) Qualifiers: Hypertension type: essential hypertension Qualified Code(s): I10 - Essential (primary) hypertension (10) Edema Qualifiers: Edema type: unspecified Qualified Code(s): R60.9 - Edema, unspecified
[2018-05-06] MEDS: Furosemide 40 MG/4 ML VIAL IVP SCH (15:05)
[2018-05-06] MEDS: Insulin LISPRO 300 UNITS/3 ML VIAL SQ SCH ×2 (15:17→21:02)
[2018-05-06] MEDS ORDERED: Perflutren Lipid Microsphere 1.3 ML in 0.9 % Sodium Chloride 8.7 ML IVP ONE (23:43)
[2018-05-06] MEDS ORDERED: Perflutren Lipid Microsphere 2 ML VIAL ONE (23:46)
[2018-05-07 05:58] LABS: Eosinophils # 0.2 K/mcL (0.0-0.6); Eosinophils % 3.5 %; Hematocrit 34.6 % (37.5-50.1); Hemoglobin 12.2 g/dL (12.9-16.9); Immature Granulocytes % 0.2 % (0-4); Lymphocytes # 2.7 K/mcL (0.6-4.6); Lymphocytes % 51.3 %; Mean Corpuscular HGB Conc 35.3 g/dL (31.6-35.5); Mean Corpuscular Hemoglobin 38.6 pg (28.0-33.3); Mean Corpuscular Volume 109.5 fL (83.0-100.0); Mean Platelet Volume 10.6 fL (9.4-12.4); Monocytes # 0.4 K/mcL (0.0-1.3); Monocytes % 7.7 %; Neutrophils # 1.9 K/mcL (1.6-8.9); Red Blood Count 3.16 M/mcL (4.19-5.50); Red Cell Distribution Width 13.5 % (11.5-14.5); Segmented Neutrophils % 37.3 %
[2018-05-07 06:05] LABS: Platelet Count 72 K/mcL (140-400)
[2018-05-07 06:21] LABS: Alanine Aminotransferase 38 Units/L (7-52); Albumin 2.5 g/dL (3.5-5.7); Alkaline Phosphatase 140 Units/L (34-104); Aspartate Amino Transferase 118 Units/L (13-39); BUN/Creatinine Ratio 8 (6-26); Bilirubin,Total 2.7 mg/dL (0.3-1.0); Blood Urea Nitrogen 8 mg/dL (8-23); Carbon Dioxide 28 mEq/L (23-29); Chloride 97 mEq/L (98-107); Globulin 2.5 g/dL (2.4-3.5); Glucose 186 mg/dL (70-105); Osmolality,Calculated 277 (280-300); Potassium 3.8 mEq/L (3.5-5.1); Sodium 132 mEq/L (136-145); eGFR For Non-African Americans > 60 (> 60)
[2018-05-07 07:52] LABS: Magnesium 1.2 mg/dL (1.6-2.6)
[2018-05-07] MEDS: Tolterodine LA (24 HR) 4 MG CAP.ER.24H PO SCH (08:04)
[2018-05-07] MEDS: Cholecalciferol (D-3) 1,000 UNIT TABLET PO SCH (08:04)
[2018-05-07] MEDS: Thiamine (B-1) 100 MG TABLET PO SCH (08:04)
[2018-05-07] MEDS: Aspirin Enteric Coated 81 MG Tablet PO SCH (08:04)
[2018-05-07] MEDS: Insulin LISPRO 300 UNITS/3 ML VIAL SQ SCH ×4 (08:05→21:00)
[2018-05-07] MEDS: Furosemide 40 MG/4 ML VIAL IVP SCH (08:05)
[2018-05-07] MEDS: (Glucosamine Hcl/Chondr Su A Na [Cvs Glucosamine-Chon) PO SCH (08:20)
--- NOTE | 2018-05-07 11:06 | Internal Med Progress Note ---
Hospitalist Progress Note - Encounter Date of Encounter: 05/07/18 Time of Encounter: 09:45 - Subjective Interval History: Patient was seen and assessed the bedside 0945 AM. He is alert, awake, oriented , answers questions appropriately. He denies any abdominal pain, nausea, vomiting, or diarrhea. He denies any cough or shortness of breath, denies shortness of breath with exertion. He denies any chest pain, dizziness, or vision changes. Pt states that he cannot stay here again overnight since his room is cold and reports multiple complaints with noise at nighttime. We discussed that he should stay since he is not better and he states that he would let me know what he decides to do. - Exam Vitals: Temp Pulse Resp BP Pulse Ox 97.7 F 61 16 152/83 97 05/07/18 07:33 05/07/18 07:33 05/07/18 07:33 05/07/18 07:33 05/07/18 07:33 Exam: General: Pt resting quietly on bed, no distress. Skin: pwd, no rashes, lesions, redness Neurological: Pt is alert and awake, oriented x 3, Speech is clear, PERRLA, EOMI , no nystagmus, no pronator drift. strength equal x 4 extremities HEENT: mucous mumbranes moist, no conjuctival pallor Neck: supple, no tracheal deviation, no lymphadenopathy, tenderness, no thyromegaly Heart: S1S2 heard without gallops, clicks, murmurs, no bradycardia or tachycardia, pt has +3-4 pitting bilateral peripheral edema, radial pulses palpable bilaterally. Lungs: clear throughout without wheezing, rales, or ronchi, respirations are unlabored Abdomen: soft and non tender with bowel sound present, no hepatomegaly. Psych: Normal affect with good eye contact - Assessment and Plan (1) Hypoglycemia Current Visit: Yes Status: Acute Assessment and Plan: Pt. and state that hypoglycemia has been an ongoing problem. SW consult to discuss home BG check supplies. Hold Glipizide. Hypoglycemic protocol ordered. ADA diet. Pt. would benefit from Endocrinology consult as OP on discharge. 05/07- A1c 4.9%, home medication will not be restarted. Accuchecks have been elevated and he is currently being covered with low dose sliding scale until better glycemic control is achieved. Continue accuchecks and diabetic diet. (2) Transient neurological symptoms Current Visit: Yes Status: Resolved Assessment and Plan: Resolved. Due to hypoglycemia. Angiography CT 05/05/18 11:52 IMPRESSION: No acute intracranial abnormality. Stable curvilinear hyperdensity involving posterior left frontal lobe cortex, likely calcification. This structure is unchanged dating back to 2010. No intracranial arterial large vessel occlusion. No arterial flow-limiting stenosis in the neck demonstrated. D/ / Christian Brantley MD / Christian Brantley MD Interpreting Provider: Christian Brantley MD Neck CTA 05/05/18 11:52 IMPRESSION: No acute intracranial abnormality. Stable curvilinear hyperdensity involving posterior left frontal lobe cortex, likely calcification. This structure is unchanged dating back to 2010. No intracranial arterial large vessel occlusion. No arterial flow-limiting stenosis in the neck demonstrated. D/ / Christian Brantley MD / Christian Brantley MD Interpreting Provider: Christian Brantley MD Brain MRI 05/05/18 16:25 IMPRESSION: Chronic involutional changes. No acute infarct. D/ / Sami Montoya MD / Sami Montoya MD Interpreting Provider: Sami Montoya MD (3) CAD (coronary artery disease) Current Visit: Yes Status: Chronic Assessment and Plan: Chronic. Patient denies chest pain CABG in 1994, stent placement 1 in 2012. Telemetry Continue aspirin, statin, beta boy. (4) Diabetes Current Visit: Yes Status: Chronic Assessment and Plan: A1c is 4.9%. We will discontinue Glipizide. Patient has been hyperglycemic, continue Accu-Cheks and sliding scale insulin until control is regained. Diabetic diet (5) HLD (hyperlipidemia) Current Visit: Yes Status: Chronic Assessment and Plan: Chronic. Continue statin. (6) HTN (hypertension) Current Visit: Yes Status: Chronic Assessment and Plan: Chronic. Well controlled. Continue current medications. (7) DVT prophylaxis Current Visit: Yes Status: Acute Assessment and Plan: Bilateral DEBORAH hose for DVT prophylaxis d/t current pedal edema. Pt is up in the chair and will encourage ambulation. (8) History of prostate cancer Current Visit: Yes Status: Chronic Assessment and Plan: Hx of chronic prostate cancer that pt. reports receiving radiation txs in 2010. Pt. and state that sx have returned and they believe cancer has returned. Pt. to f/u w/Oncologist OP. Continue pts. Detrol LA. (9) Weakness of both legs Current Visit: Yes Status: Acute Assessment and Plan: Acute on chronic, also probably exacerbated by 30lb weight gain and pitting lower extremity edema. PT/OT recommend SNF/ECF after discharge. Monitor for safety and falls. (10) Edema Current Visit: Yes Status: Acute Assessment and Plan: Pt presents with 30lb weight gain in the last 2-3 months despite anorexia and decreased po intake. He has +3-4 pitting edema bilaterally. Lungs are clear ant and post, CXR negative for acute process Pt denies prior history of CHF. pt is s/p CABG, BNP mildly elevated TTE shows LVEF 55-60% , mild LV DD, no significant valvular dysfunction. Lasix 40mg IVP dailiy Strict I and O Daily weight 1.5 liter fluid restriction Continue telemetry - Time Spent with Patient Total time spent is greater than 50% in coordination of care (as documented) at patient's floor/unit and/or counseling patient: less than 15 minutes Plan of Care Discussed with: patient Internal Medicine: Result - Labs CBC & Chem 7: 05/07/18 04:16 05/07/18 04:16 Labs: Short CBC 05/07/18 Range/Units 04:16 WBC 5.2 (4.3-11.1) K/mcL Hgb 12.2 L (12.9-16.9) g/dL Hct 34.6 L (37.5-50.1) % Plt Count 72 L (140-400) K/mcL Neutrophils # 1.9 (1.6-8.9) K/mcL BMP 05/07/18 04:16 Sodium 132 L Potassium 3.8 Chloride 97 L Carbon Dioxide 28 BUN 8 Creatinine 0.95 Glucose 186 H Calcium 8.0 L Liver Function 05/07/18 Range/Units 04:16 Total Bilirubin 2.7 H (0.3-1.0) mg/dL AST 118 H (13-39) Units/L ALT 38 (7-52) Units/L Alkaline Phosphatase 140 H (34-104) Units/L Albumin 2.5 L (3.5-5.7) g/dL - ABG Interpretation ABG results: PT/INR, D-dimer PT 14.5 Seconds (9.4-12.1) H 05/05/18 12:40 - Impressions Impressions Echocardiogram 05/06/18 13:18 Impressions: LVEF 55-60%. Normal LV chamber size, wall thickness and function. Atypical septal motion consistent with post-operative status. Mild left ventricular diastolic dysfunction. Normal right ventricular structure and function. Unable to estimate RVSP due to lack of TR jet. No significant valvular dysfunction. Left Ventricular Wall Motion: Rest Echo Findings All wall segments showed normal motion. Findings: Study Quality * Technically adequate exam. ECG Findings * Sinus bradycardia. Left Ventricle * LVEF 55-60%. * Normal LV chamber size, wall thickness and function. * Atypical septal motion consistent with post-operative status. * Mild left ventricular diastolic dysfunction. Right Ventricle * Normal right ventricular structure and function. Left Atrium * Mildly dilated left atrium. Right Atrium * Mildly dilated right atrium. Aortic Valve * Aortic valve not well visualized. * No aortic regurgitation. * No aortic stenosis. Mitral Valve * Normal mitral valve structure and function. * No mitral regurgitation. * No mitral stenosis. Tricuspid Valve * Normal tricuspid valve structure and function. * No tricuspid regurgitation. * Unable to estimate RVSP due to lack of TR jet. Pulmonic Valve * Pulmonic valve not well visualized. * No pulmonic regurgitation. Aorta * Normally sized aortic root. Pericardium * The pericardium appears normal. IVC * The IVC is not well evaluated. Pulmonary Artery * Normal visualized portions of the main pulmonary artery. - VTE Documentation of Mechanical Device: Graduated compression elastic hosiery Consult Discharge Plan - Plan [facility]errals: [facility] [Primary Care Provider] - (3) CAD (coronary artery disease) Qualifiers: Coronary Disease-Associated Artery/Lesion type: unspecified vessel or lesion type [place] vs. transplanted heart: [place] heart Associated angina: angina presence unspecified Qualified Code(s): I25.10 - Atherosclerotic heart disease of [place] coronary artery without angina pectoris (4) Diabetes Qualifiers: Diabetes mellitus type: type 2 Diabetes mellitus longterm insulin use: without bed bug exterminator use Diabetes mellitus complication status: with unspecified complications Qualified Code(s): E11.8 - Type 2 diabetes mellitus with unspecified complications (5) HLD (hyperlipidemia) Qualifiers: Hyperlipidemia type: pure hypercholesterolemia Qualified Code(s): E78.00 - Pure hypercholesterolemia, unspecified; E78.0 - Pure hypercholesterolemia (6) HTN (hypertension) Qualifiers: Hypertension type: essential hypertension Qualified Code(s): I10 - Essential (primary) hypertension (10) Edema Qualifiers: Edema type: unspecified Qualified Code(s): R60.9 - Edema, unspecified
[2018-05-07] MEDS: Magnesium Oxide 400 MG TABLET PO SCH ×2 (11:52→20:59)
[2018-05-08 04:33] LABS: Basophils % 0.2 %; Eosinophils # 0.2 K/mcL (0.0-0.6); Eosinophils % 3.1 %; Hematocrit 36.1 % (37.5-50.1); Hemoglobin 12.9 g/dL (12.9-16.9); Immature Granulocytes % 0.4 % (0-4); Immature Platelets 3.4 % (1.1-6.1); Lymphocytes # 2.5 K/mcL (0.6-4.6); Lymphocytes % 47.6 %; Mean Corpuscular HGB Conc 35.7 g/dL (31.6-35.5); Mean Corpuscular Hemoglobin 38.9 pg (28.0-33.3); Mean Corpuscular Volume 108.7 fL (83.0-100.0); Monocytes # 0.4 K/mcL (0.0-1.3); Monocytes % 8.5 %; Neutrophils # 2.1 K/mcL (1.6-8.9); Nucleated Red Blood Cells 0.4 /100 WBC (0); Red Blood Count 3.32 M/mcL (4.19-5.50); Red Cell Distribution Width 13.3 % (11.5-14.5); Segmented Neutrophils % 40.2 %
[2018-05-08 04:38] LABS: Platelet Count 78 K/mcL (140-400)
[2018-05-08 04:49] LABS: Alanine Aminotransferase 35 Units/L (7-52); Albumin 2.6 g/dL (3.5-5.7); Albumin/Globulin Ratio 1.1 (1.1-2.2); Alkaline Phosphatase 133 Units/L (34-104); Aspartate Amino Transferase 105 Units/L (13-39); BUN/Creatinine Ratio 9 (6-26); Bilirubin,Total 2.6 mg/dL (0.3-1.0); Blood Urea Nitrogen 9 mg/dL (8-23); Calcium 8.3 mg/dL (8.6-10.3); Carbon Dioxide 28 mEq/L (23-29); Chloride 97 mEq/L (98-107); Globulin 2.4 g/dL (2.4-3.5); Glucose 157 mg/dL (70-105); Osmolality,Calculated 270 (280-300); Potassium 3.9 mEq/L (3.5-5.1); Sodium 129 mEq/L (136-145); eGFR For Non-African Americans > 60 (> 60)
[2018-05-08] MEDS: Tolterodine LA (24 HR) 4 MG CAP.ER.24H PO SCH (09:45)
[2018-05-08] MEDS: Aspirin Enteric Coated 81 MG Tablet PO SCH (09:45)
[2018-05-08] MEDS: Furosemide 40 MG/4 ML VIAL IVP SCH (09:45)
[2018-05-08] MEDS: Magnesium Oxide 400 MG TABLET PO SCH ×2 (09:45→21:00)
[2018-05-08] MEDS: Cholecalciferol (D-3) 1,000 UNIT TABLET PO SCH (09:45)
[2018-05-08] MEDS: Thiamine (B-1) 100 MG TABLET PO SCH (09:45)
[2018-05-08] MEDS: Insulin LISPRO 300 UNITS/3 ML VIAL SQ SCH ×4 (09:46→21:59)
[2018-05-08] MEDS: (Glucosamine Hcl/Chondr Su A Na [Cvs Glucosamine-Chon) PO SCH (10:00)
--- NOTE | 2018-05-08 10:40 | Internal Med Progress Note ---
Hospitalist Progress Note - Encounter Date of Encounter: 05/08/18 Time of Encounter: 08:05 - Subjective Interval History: Patient was seen and assessed the bedside 0805 AM. He is alert, awake, oriented , answers questions appropriately. He denies any abdominal pain, nausea, vomiting, or diarrhea. He denies any cough or shortness of breath, denies shortness of breath with exertion. He denies any chest pain, dizziness, or vision changes. Pt is again anxious to be discharged, however, he now has hyponatremia, and verbalized understanding of importance of correcting that. - Exam Vitals: Temp Pulse Resp BP Pulse Ox 98.1 F 57 17 110/66 95 05/08/18 07:30 05/08/18 07:30 05/08/18 07:30 05/08/18 07:30 05/08/18 07:30 Exam: General: Pt resting quietly on bed, no distress. Skin: pwd, no rashes, lesions, redness Neurological: Pt is alert and awake, oriented x 3, Speech is clear, PERRLA, EOMI , no nystagmus, no pronator drift. strength equal x 4 extremities HEENT: mucous mumbranes moist, no conjuctival pallor Neck: supple, no tracheal deviation, no lymphadenopathy, tenderness, no thyromegaly Heart: S1S2 heard without gallops, clicks, murmurs, no bradycardia or tachycardia, pt has +3 pitting bilateral peripheral edema with some mild improvement, radial pulses palpable bilaterally. Lungs: clear throughout without wheezing, rales, or ronchi, respirations are unlabored Abdomen: soft and non tender with bowel sound present, no hepatomegaly. Psych: Normal affect with good eye contact - Assessment and Plan (1) Hypoglycemia Current Visit: Yes Status: Resolved Assessment and Plan: 05/08-Resolved. 05/07- A1c 4.9%, home medication will not be restarted. Accuchecks have been elevated and he is currently being covered with low dose sliding scale until better glycemic control is achieved. Continue accuchecks and diabetic diet. (2) Transient neurological symptoms Current Visit: Yes Status: Resolved Assessment and Plan: Resolved. (3) CAD (coronary artery disease) Current Visit: Yes Status: Chronic Assessment and Plan: Chronic. Patient denies chest pain CABG in 1994, stent placement 1 in 2012. Telemetry Continue aspirin, statin, beta boy. (4) Diabetes Current Visit: Yes Status: Chronic Assessment and Plan: A1c is 4.9%. We will discontinue Glipizide. Patient has been hyperglycemic, continue Accu-Cheks and sliding scale insulin until control is regained. Basal insulin has been restarted with improvement of a.m. accuchecks. Diabetic/fluid restriction diet (5) HLD (hyperlipidemia) Current Visit: Yes Status: Chronic Assessment and Plan: Chronic. Continue statin. (6) HTN (hypertension) Current Visit: Yes Status: Chronic Assessment and Plan: Chronic. Well controlled. Continue current medications. (7) DVT prophylaxis Current Visit: Yes Status: Acute Assessment and Plan: Bilateral DEBORAH hose for DVT prophylaxis d/t current pedal edema. Pt is up in the chair and will encourage ambulation. (8) History of prostate cancer Current Visit: Yes Status: Chronic Assessment and Plan: Pt. to f/u w/Oncologist OP. Continue Detrol LA. (9) Weakness of both legs Current Visit: Yes Status: Acute Assessment and Plan: Acute on chronic, also probably exacerbated by 30lb weight gain and pitting lower extremity edema. PT/OT recommend SNF/ECF after discharge. Monitor for safety and falls. (10) Edema Current Visit: Yes Status: Acute Assessment and Plan: Pt presents with 30lb weight gain in the last 2-3 months despite anorexia and decreased po intake. He has +3-4 pitting edema bilaterally. Lungs are clear ant and post, CXR negative for acute process Pt denies prior history of CHF. pt is s/p CABG, BNP mildly elevated TTE shows LVEF 55-60% , mild LV DD, no significant valvular dysfunction. 05/08- Pt states that he is not drinking much fluid. He also reports that he spilled his urinal in his bed, so output is not accurate at this point. He does appear to have some mild improvement in BLE edema, however, he has been lying in bed all night. He is hyponatremic, blood glucose is elevated, though in the 150s-180s. Likely, pt is not adherent to fluid restriction, osmolality 270. Discussed with primary RN. Lasix 40mg IVP BID Strict I and O- Fluid deficit -40ml Daily weight- approximately 1kg loss 1 liter fluid restriction, will reassess in the a.m. Continue telemetry - Time Spent with Patient Total time spent is greater than 50% in coordination of care (as documented) at patient's floor/unit and/or counseling patient: less than 15 minutes Plan of Care Discussed with: patient Internal Medicine: Result - Labs CBC & Chem 7: 05/08/18 04:14 05/08/18 04:14 Labs: Short CBC 05/08/18 Range/Units 04:14 WBC 5.2 (4.3-11.1) K/mcL Hgb 12.9 (12.9-16.9) g/dL Hct 36.1 L (37.5-50.1) % Plt Count 78 L (140-400) K/mcL Neutrophils # 2.1 (1.6-8.9) K/mcL BMP 05/08/18 04:14 Sodium 129 L Potassium 3.9 Chloride 97 L Carbon Dioxide 28 BUN 9 Creatinine 1.02 Glucose 157 H Calcium 8.3 L Liver Function 05/08/18 Range/Units 04:14 Total Bilirubin 2.6 H (0.3-1.0) mg/dL AST 105 H (13-39) Units/L ALT 35 (7-52) Units/L Alkaline Phosphatase 133 H (34-104) Units/L Albumin 2.6 L (3.5-5.7) g/dL - ABG Interpretation ABG results: PT/INR, D-dimer PT 14.5 Seconds (9.4-12.1) H 05/05/18 12:40 - VTE Documentation of Mechanical Device: Graduated compression elastic hosiery Consult Discharge Plan - Plan [facility]errals: [facility] [Primary Care Provider] - (3) CAD (coronary artery disease) Qualifiers: Coronary Disease-Associated Artery/Lesion type: unspecified vessel or lesion type [place] vs. transplanted heart: [place] heart Associated angina: angina presence unspecified Qualified Code(s): I25.10 - Atherosclerotic heart disease of [place] coronary artery without angina pectoris (4) Diabetes Qualifiers: Diabetes mellitus type: type 2 Diabetes mellitus intermodal dispatcher insulin use: without residential use Diabetes mellitus complication status: with unspecified complications Qualified Code(s): E11.8 - Type 2 diabetes mellitus with unspecified complications (5) HLD (hyperlipidemia) Qualifiers: Hyperlipidemia type: pure hypercholesterolemia Qualified Code(s): E78.00 - Pure hypercholesterolemia, unspecified; E78.0 - Pure hypercholesterolemia (6) HTN (hypertension) Qualifiers: Hypertension type: essential hypertension Qualified Code(s): I10 - Essential (primary) hypertension (10) Edema Qualifiers: Edema type: unspecified Qualified Code(s): R60.9 - Edema, unspecified
[2018-05-09 04:46] LABS: Basophils % 0.2 %; Immature Granulocytes % 0.2 % (0-4)
[2018-05-09 04:48] LABS: Eosinophils # 0.2 K/mcL (0.0-0.6); Eosinophils % 3.6 %; Hematocrit 36.2 % (37.5-50.1); Immature Platelets 3.1 % (1.1-6.1); Lymphocytes % 54.1 %; Mean Corpuscular HGB Conc 35.9 g/dL (31.6-35.5); Mean Corpuscular Hemoglobin 38.8 pg (28.0-33.3); Mean Corpuscular Volume 108.1 fL (83.0-100.0); Mean Platelet Volume 10.2 fL (9.4-12.4); Monocytes # 0.5 K/mcL (0.0-1.3); Monocytes % 8.2 %; Neutrophils # 1.9 K/mcL (1.6-8.9); Red Blood Count 3.35 M/mcL (4.19-5.50); Red Cell Distribution Width 13.4 % (11.5-14.5); Segmented Neutrophils % 33.7 %
[2018-05-09 04:50] LABS: Platelet Count 84 K/mcL (140-400)
[2018-05-09 05:06] LABS: BUN/Creatinine Ratio 12 (6-26); Blood Urea Nitrogen 12 mg/dL (8-23); Calcium 8.3 mg/dL (8.6-10.3); Carbon Dioxide 27 mEq/L (23-29); Chloride 97 mEq/L (98-107); Glucose 140 mg/dL (70-105); Osmolality,Calculated 274 (280-300); Potassium 3.6 mEq/L (3.5-5.1); Sodium 131 mEq/L (136-145); eGFR For Non-African Americans > 60 (> 60)
[2018-05-09] MEDS: Insulin LISPRO 300 UNITS/3 ML VIAL SQ SCH ×2 (08:00→12:09)
[2018-05-09] MEDS ORDERED: Furosemide 40 MG/4 ML VIAL IVP SCH (09:00)
[2018-05-09] MEDS: Aspirin Enteric Coated 81 MG Tablet PO SCH (09:07)
[2018-05-09] MEDS: Tolterodine LA (24 HR) 4 MG CAP.ER.24H PO SCH (09:07)
[2018-05-09] MEDS: Magnesium Oxide 400 MG TABLET PO SCH (09:07)
[2018-05-09] MEDS: Cholecalciferol (D-3) 1,000 UNIT TABLET PO SCH (09:07)
[2018-05-09] MEDS: Thiamine (B-1) 100 MG TABLET PO SCH (09:07)
[2018-05-09 11:35] VITALS: BP 109/72
[2018-05-09] MEDS: (Glucosamine Hcl/Chondr Su A Na [Cvs Glucosamine-Chon) PO SCH (12:05)
--- NOTE | 2018-05-09 12:54 | Discharge Summary ---
Orders not resulted at time of discharge: Pending orders 05/10/18 04:00 Basic Metabolic Panel AM 0400 Complete Blood Count [HEME] AM 0400 05/11/18 04:00 Basic Metabolic Panel AM 0400 Complete Blood Count [HEME] AM 0400 Date of Encounter: 05/09/18 Time of Encounter: 09:50 - Discharge Diagnosis (1) Hypoglycemia Priority: Secondary Status: Resolved Assessment and Plan: 05/09- Resolved. Will continue basal insulin home dose. Pt will need to follow with PCP for further evaluation. 05/08-Resolved. 05/07- A1c 4.9%, home medication will not be restarted. Accuchecks have been elevated and he is currently being covered with low dose sliding scale until better glycemic control is achieved. Continue accuchecks and diabetic diet. (2) Transient neurological symptoms Priority: Secondary Status: Resolved Assessment and Plan: Resolved. Secondary to hypoglycemia. (3) CAD (coronary artery disease) Priority: Secondary Status: Chronic Assessment and Plan: Chronic. Patient denies chest pain CABG in 1994, stent placement 1 in 2012. Telemetry Continue aspirin, statin, beta boy. Qualifiers: Coronary Disease-Associated Artery/Lesion type: unspecified vessel or lesion type [place] vs. transplanted heart: [place] heart Associated angina: angina presence unspecified Qualified Code(s): I25.10 - Atherosclerotic heart disease of [place] coronary artery without angina pectoris (4) Diabetes Priority: Secondary Status: Chronic Assessment and Plan: A1c is 4.9%. We will discontinue Glipizide. Patient has been hyperglycemic, continue Accu-Cheks and sliding scale insulin until control is regained. Basal insulin has been restarted with improvement of a.m. accuchecks. Will continue at home. Diabetic diet at home. Pt will need to closely follow with PCP for evaluation of medications and to monitor blood glucose. Qualifiers: Diabetes mellitus type: type 2 Diabetes mellitus shelter insulin use: without emt intermediate use Diabetes mellitus complication status: with unspecified complications Qualified Code(s): E11.8 - Type 2 diabetes mellitus with unspecified complications (5) HLD (hyperlipidemia) Priority: Secondary Status: Chronic Assessment and Plan: Chronic. Continue statin. Qualifiers: Hyperlipidemia type: pure hypercholesterolemia Qualified Code(s): E78.00 - Pure hypercholesterolemia, unspecified; E78.0 - Pure hypercholesterolemia (6) HTN (hypertension) Priority: Secondary Status: Chronic Assessment and Plan: Chronic. Stable. Continue current medications. Qualifiers: Hypertension type: essential hypertension Qualified Code(s): I10 - Essential (primary) hypertension (7) DVT prophylaxis Priority: Secondary Status: Acute Assessment and Plan: Bilateral DEBORAH hose for DVT prophylaxis d/t current pedal edema were ordered. Pt is up in the chair and participated with PT/OT (8) History of prostate cancer Priority: Secondary Status: Chronic Assessment and Plan: Pt. to f/u w/Oncologist OP. Continue Detrol LA. Pt has been incontinent at night here. (9) Weakness of both legs Priority: Secondary Status: Acute Assessment and Plan: Acute on chronic, also probably exacerbated by 30lb weight gain and pitting lower extremity edema. PT/OT recommend SNF/ECF after discharge. Monitor for safety and falls. 05/09- Pt declined ECF/SNF, states that his insurance won't cover it and that his is [facility]. (10) Edema Priority: Secondary Status: Acute Assessment and Plan: Pt presents with 30lb weight gain in the last 2-3 months despite anorexia and decreased po intake. He has +3-4 pitting edema bilaterally. Lungs are clear ant and post, CXR negative for acute process Pt denies prior history of CHF. pt is s/p CABG, BNP mildly elevated TTE shows LVEF 55-60% , mild LV DD, no significant valvular dysfunction. 05/08- Pt states that he is not drinking much fluid. He also reports that he spilled his urinal in his bed, so output is not accurate at this point. He does appear to have some mild improvement in BLE edema, however, he has been lying in bed all night. He is hyponatremic, blood glucose is elevated, though in the 150s-180s. Likely, pt is not adherent to fluid restriction, osmolality 270. Discussed with primary RN. 05/09- Pt has been incontinent of urine x 3 per his admission and states that staff has not been measuring his urine. He has been anxious to go home throughout his entire stay and states that today he is going home. He has improved and there is some improvement to BLE edema, though it is still pitting. I will give pt Lasix 20mg po daily for home and we have discussed his fluid and sodium restriction at length, though I do not have much confidence in his adherence to either. Pt states that he can't live on the amount of fluid that we are limiting him to. I will also give him a prescription for Biotene and we have discussed how to weigh himself daily and to notify his doctor of weight gain of 2-3lbs. He verbalized understanding. Qualifiers: Edema type: unspecified Qualified Code(s): R60.9 - Edema, unspecified Hospital course: Please see assessment and plan for hospital course. Discharge discussed with: patient, family, nurse - Time Spent with Patient Total time spent providing and/or coordinating discharge services: Less than 30 minutes - Discharge Medications Prescriptions: Furosemide [Lasix] 20 mg PO DAILY #30 tablet Home Medications: Aspirin [Lo-Dose Aspirin EC] 81 mg PO DAILY 05/05/18 [History] Cholecalciferol (D-3) [Vitamin D] 1,000 unit PO DAILY 05/05/18 [History] Donepezil [Aricept] 5 mg PO QAM 05/05/18 [History] Glucosamine HCl/Chondr [place] A Na [[facility] Glucosamine-Chondr Tablet] 1 tab PO DAILY [History] Lovastatin 40 mg PO HS 05/05/18 [History] Propranolol [Inderal] 10 mg PO BID 05/05/18 [History] Thiamine HCl [Vitamin B-1] 100 mg PO DAILY 05/05/18 [History] Tolterodine LA (24 HR) [Detrol LA] 4 mg PO DAILY 05/05/18 [History] glipiZIDE [Glucotrol] 2.5 mg PO BID 05/05/18 [History] Furosemide [Lasix] 20 mg PO DAILY #30 tablet 05/09/18 [Rx] Allergies/Adverse Reactions: 3 Allergy/AdvReac Type Severity Reaction Status Date / Time bee venom protein (honey bee) Allergy Anaphylaxis Verified 05/05/18 13:43 gabapentin AdvReac Shakiness Verified 05/05/18 13:43 pregabalin AdvReac Shakiness Verified 05/05/18 13:43 Date of admission: 05/05/18 15:32 Primary care physician: [facility] Consults: 05/05/18 16:11 Consult to Relations Manager [CONS] Routine Reason for SW Consult: Please assess patient for possible home needs, especially updated DM glucometer/supplies, for post-discharge planning. 05/08- PT/OT has recommended SNF for rehab 05/05/18 16:12 Consult to Occupational Therapy [CONS] Routine Comment: Evaluate, develop and implement POC Reason for Consult: Patient and report that pt. has weakness of bilateral LEs and chronic back pain/weakness that interferes w/safe ambulation. States he has needed PT/OT in the past. Please assess pt. for ambulation strength, safety, stability, and possible home assistive needs/ rehabilitation for post-discharge planning. Does patient have active BEDREST order?: No Is patient medically & hemodynamically stable?: Yes Patient assessed for mobility or mobilized this visit?: No 05/05/18 16:14 Consult to Physical Therapy [CONS] Routine Comment: Evaluate, develop and implement POC Reason for Consult: Patient and report that pt. has weakness of bilateral LEs and chronic back pain/weakness that interferes w/safe ambulation. States he has needed PT/OT in the past. Please assess pt. for ambulation strength, safety, stability, and possible home assistive needs/ rehabilitation for post-discharge planning. Does patient have active BEDREST order?: No Is patient medically & hemodynamically stable?: Yes Patient assessed for mobility or mobilized this visit?: No Discharging clinician: Sayda Ramírez Anticipated date of discharge: 05/09/18 - Constitutional Vitals: Temp Pulse Resp BP Pulse Ox 97.6 F 57 18 109/72 95 05/09/18 11:34 05/09/18 11:34 05/09/18 11:34 05/09/18 11:34 05/09/18 11:34 General appearance: Present: cooperative, A&O X 3, pleasant, no acute distress, obese, answers questions appropriately Exam: as above - Head Head exam: Present: atraumatic, normal inspection, normocephalic - Eye Eye exam: Present: PERRL, conjuntiva pink, sclera anicteric Pupils: Present: PERRL - Neck Neck exam general surgery: Present: normal inspection, supple, trachea midline. Absent: lymphadenopathy, tenderness - Respiratory Respiratory exam: Present: CTAB. Absent: accessory muscle use, chest wall tenderness, rales, respiratory distress, rhonchi, wheezes - Cardiovascular Cardiovascular exam: Present: RRR, +S1, +S2. Absent: diastolic murmur, gallop, rubs, systolic murmur - GI/Abdominal GI/Abdominal exam: Present: normal bowel sounds, soft. Absent: distended, hepatomegaly, tenderness - Extremities Exam Extremities exam: Present: normal inspection, pedal edema, tenderness, warm, radial pulses palpable and symmetrical. Absent: calf tenderness, cyanotic, joint swelling - Neurological Exam Neurological exam: Present: alert, CN II-XII intact, oriented X3, no focal deficits. Absent: facial droop, speech deficit - Skin Skin exam: Present: dry, intact, normal color, warm. Absent: rash - Patient Status Disposition: Home Health Service Condition: Good Functional capacity at discharge: uses cane/walker Overall status at discharge: patient is progressing back to baseline - Discharge Instructions [facility] Provider[facility] - Additional Instructions: Follow up with your PCP in the next 3-5 days for a recheck. Take your medications as directed. Start talking Lasix today, take 1 tablet daily. Weigh yourself daily, first thing in the morning with the same type/weight of clothing, every morming. Write your weight down daily, when you see a weight gain of 2-3 lbs, notify your physician. Watch your sodium intake, read labels and do not use extra salt. Stick to the fluid restriction that we were using here, no more than 1.5 liters daily and measure your urine in the urinal daily Return to the ER as needed for any other problems or concerns, or if your symptoms return or worsen. Resume your normal medications and return to your normal diet and activties as tolerated. - Diet and Activity Activity: as per physical therapy, resume usual activities as tolerated Diet: low fat, low cholesterol, low salt diet - VTE Documentation of Mechanical Device: Graduated compression elastic hosiery
== END 2018-05-09 14:34 | disposition home health service (06) ==
LOC: 3BNU 11:43 → EMEROOARM 11:43 → 3BNU 15:56
PROVIDERS: ADMIT Internal Medicine; ATTEND Internal Medicine